=== PATIENT | male | born 1980 | race African-American/Black ===

== ENCOUNTER 2016-10-15 20:22 | Emergency (ER) | payer OTHER ==
[~2016-10-15] VITALS: Ht 185.4 cm; Wt 136.1 kg
[~2016-10-15 20:22] MED LIST: ALBUTEROL0.09 MG/A1 INH; IBUPROFEN600 M1 PO; METFORMIN HCL1000 M1 PO; MOTRIN800 MG PO; TRAMADOL HCL50 M1 PO; VENTOLIN HFA18 GM INH
--- NOTE | 2016-10-15 21:08 | ED UPPER/LOWER EXTREMITY COMPL ---
History of Present Illness General Chief Complaint: General Adult Stated Complaint: " LT LEG SWELLING, CONCERNED ABOUT BS LEVEL" Source: patient Exam Limitations: no limitations Vital Signs & Intake/Output Vital Signs & Intake/Output Vital Signs Date Time Temp Pulse Resp B/P Pulse O2 O2 Flow FiO2 Ox Delivery Rate 10/15 2241 72 16 120/68 99 Room Air 10/15 2130 Room Air 10/15 2026 98.4 83 22 141/87 97 Room Air ED Intake and Output 10/16 0000 10/15 1200 Intake Total 0 Output Total Balance 0 Intake, Oral 0 Patient 300 lb Weight Allergies Coded Allergies: NO KNOWN ALLERGIES (10/15/16) Triage Note: TRIAGE: PT TO ER C/C L LOWER LEG PAIN SINCE MONDAY. NO KNOWN INJURY. REPORTS THERE IS SWELLING AND REDNESS TO AREA AND IT IS WARM TO THE TOUCH. PT ALSO EXPRESSED CONCERN FOR BLOOD SUGAR, DIAGNOSED WITH DIABETES FEW MONTHS AGO. F/S AT [facility] DESK WAS 296. PRESCRIBED METFORMIN BID BUT STATES "I DON'T TAKE IT". STATES HE HAD A PROBLEM WITH INSURANCE SO "FIGURED WHY TAKE IT IF I CAN'T GET NO MORE". Triage Nurses Notes Reviewed? yes Onset: Abrupt Duration: day(s): (FEW), constant, continues in ED Timing: recent history Severity: moderate, severe Pain/Injury Location: Left: Leg. No Modifying Factors: none HPI: 35-year-old male comes into emergency room with left lower extremity pain and swelling has been going on for the past few days. Sharp throbbing. Patient has a history of type 2 diabetes recently diagnosed. Denies any fever chills. Patient reports that he was sick for a week prior to the leg swelling and was in bed. Denies any vomiting. Denies any other associated symptoms. (SILAS SEBASTIAN,PITER) Reconcile Medications Albuterol Sulfate (Ventolin Hfa) 18 GM HFA.AER.AD 2 PUF INH Q4-6 PRN PRN WHEEZING/SHORTNESS OF BREATH Amoxicillin 500 MG TABLET 2 TAB PO BID CELLULITIS Ibuprofen 600 MG TABLET 1 TAB PO TID HEADACHE Metformin HCl 1,000 MG TABLET 1 TAB PO BID diabetes Sulfamethoxazole/Trimethoprim (Bactrim Ds Tablet) 800 MG-160 MG TABLET 1 TAB PO BID CELLULITIS Tramadol HCl 50 MG TABLET 1 TAB PO TID PRN PAIN (MARILEE MILAN,AYANA) Past History Travel History Traveled to [place] past 21 day No Medical History Any Pertinent Medical History? 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 No (PITER KERR) Review of Systems Review of Systems Constitutional: Reports: no symptoms. EENTM: Reports: no symptoms. Respiratory: Reports: no symptoms. Cardiovascular: Reports: no symptoms. Gastrointestinal/Abdominal: Reports: no symptoms. Genitourinary: Reports: no symptoms. Musculoskeletal: Reports: see HPI. Skin: Reports: see HPI. Neurological/Psychological: Reports: no symptoms. Hematologic/Endocrine: Reports: no symptoms. Immunological: Reports: no symptoms. All Other Systems: Reviewed and Negative (PITER KERR) Physical Exam Physical Exam General Appearance: well developed/nourished, mild distress Head: atraumatic Eyes: Bilateral: normal appearance. Ears, Nose, Throat: normal ENT inspection, hearing grossly normal Neck: normal inspection Cardiovascular/Respiratory: no respiratory distress Back: normal inspection Leg Left: soft tissue tenderness, swelling, erythema, warmth, Foot Left: normal inspection, normal range of motion Neurologic/Tendon: normal sensation, normal motor functions, normal tendon functions, responds to pain, no evidence tendon injury, no pulse deficit Skin: intact, normal color, warm/dry Lymphatic: no anterior cervical massiel (PITER KERR) Progress Differential Diagnosis: cellulitis, contusion, dislocation, DVT, fracture, gout, sprain, tendon injury Plan of Care: Orders Procedure Date/time Status PARTIAL THROMBOPLASTIN TIME 10/15 2230 Complete PROTHROMBIN TIME 10/15 2230 Complete Add-on Test (ER Only) 10/15 2209 Active BLOOD CULTURE 10/15 2106 Active LACTIC ACID 10/15 2106 Complete C-REACTIVE PROTEIN 10/15 2106 Complete COMPREHENSIVE METABOLIC PANEL 10/15 2106 Complete CBC WITHOUT DIFFERENTIAL 10/15 2106 Complete Laboratory Tests 10/15/162230: PT 11.2, INR 1.07, APTT 32 10/15/162218: APTT Cancelled 10/15/162114: Anion Gap 11, Estimated GFR > 60, BUN/Creatinine Ratio 13.3, Glucose 375 H, Lactic Acid 1.1, Calcium 9.0, Total Bilirubin 0.4, AST 19, ALT 42, Alkaline Phosphatase 89, C-Reactive Prot, Quant 4.1 H, Total Protein 6.9, Albumin 3.6, Globulin 3.3, Albumin/Globulin Ratio 1.1, CBC w Diff NO MAN DIFF REQ, RBC 4.67 L, MCV 89.5, MCH 29.7, RDW 12.1, MPV 8.4, Gran % 61.9, Lymphocytes % 25.5, Monocytes % 5.5, Eosinophils % 5.5 H, Basophils % 1.6, Absolute Granulocytes 5.9, Absolute Lymphocytes 2.4, Absolute Monocytes 0.5, Absolute Eosinophils 0.5, Absolute Basophils 0.2, PUBS MCHC 33.2 Microbiology 10/15 2128 BLOOD: Blood Culture - RECD 10/15 2114 BLOOD: Blood Culture - RECD Comments: 10/15/2016 11:19:34 PM Patient was medicated with 1 time dose of Lovenox. Patient will return tomorrow morning for ultrasound of left lower extremity due to high suspicion of DVT. Could also be overlying cellulitis. If ultrasound is normal tomorrow patient will be continued on oral antibiotics that were sent to [facility] pharmacy [place] versions are. Patient understands and agrees with plan of care. Reevaluated multiple times. Nontoxic-appearing. She had decision-making. Case discussed with Dr. Dudley. (SILAS PA,AFTON) Departure Departure Disposition: HOME OR SELF CARE Condition: Stable Clinical Impression Primary Impression: Swelling of calf Secondary Impressions: Cellulitis Referrals: RIGOBERTO MILAN,[place] (PCP/Family) Additional Instructions: Please return tomorrow morning at 8 AM for a ultrasound of her left lower extremity to rule out DVT. Return if any other concerns worsening symptoms. At this time it is unclear as to whether there is an infection of the skin or a blood clot. Due to the fact that ultrasound is not here you will have to return tomorrow morning for ultrasound. Please go over all results of today's visit with your primary care doctor. Contact your primary care doctor to let them know you were here in the emergency room. There may be nonspecific findings which may not be related to your visit today here in the emergency room but may require further evaluation and chronic monitoring by your primary care doctor. If you had a laceration today the chance of foreign body always remains. You should follow-up with your primary care doctor for recheck in 3-5 days for a wound check. If you had an x-ray done there is a chance that a fracture could have been missed on initial read and you should follow-up with your primary care doctor for repeat x-rays if symptoms persist. If your blood pressure was elevated here in the emergency room please have rechecked by her primary care doctor within the next 48 hours by your primary care doctor. If you were prescribed a narcotic here in the emergency room or any type of controlled substances you're not allowed to drive while taking this medication or operate any type of heavy machinery. Narcotics can make you feel lightheaded dizziness nausea and can cause constipation. You may need to picker tender helper a stool softener. Thank you for choosing [facility] emergency room. Please return to the emergency room immediately if you have any other concerns worsening of symptoms. Departure Forms: Customer Survey General Discharge Information Prescriptions: Current Visit Scripts Amoxicillin 2 TAB PO BID #40 TAB Sulfamethoxazole/Trimethoprim (Bactrim Ds Tablet) 1 TAB PO BID #20 TAB (PITER KERR) PA/COOPERATIVE MANAGER Co-Sign Statement Statement: ED Attending supervision documentation- [] I saw and evaluated the patient. I have also reviewed all the pertinent lab results and diagnostic results. I agree with the findings and the plan of care as documented in the PA's/COOPERATIVE MANAGER's documentation. [X] I have reviewed the ED Record and agree with the PA's/COOPERATIVE MANAGER's documentation. [] Additions or exceptions (if any) to the PAs/COOPERATIVE MANAGER's note and plan are summarized below: [] (MARILEE MILAN,AYANA)
[2016-10-15 21:37] LABS: ABSOLUTE BASOPHIL COUNT 0.2 /CUMM (0.0-0.2); ABSOLUTE EOSINOPHIL COUNT 0.5 /CUMM (0.0-0.7); ABSOLUTE GRANULOCYTE CT 5.9 /CUMM (1.4-6.5); ABSOLUTE LYMPH COUNT 2.4 /CUMM (1.2-3.4); ABSOLUTE MONOCYTE COUNT 0.5 /CUMM (0.10-0.60); BASOPHIL % 1.6 % (0.0-2.0); EOSINOPHIL % 5.5 % (0-5); GRANULOCYTE % 61.9 % (42.2-75.2); HEMATOCRIT 41.8 % (42-52); MEAN CORPUSCULAR HGB 29.7 PG (27.0-31.0); MEAN CORPUSCULAR HGB CONC 33.2 G/DL (33.0-37.0); MEAN CORPUSCULAR VOLUME 89.5 FL (80.0-94.0); MEAN PLATELET VOLUME 8.4 FL (7.4-10.4); PLATELET COUNT 401 /CUMM (130-400); RBC DISTRIBUTION WIDTH 12.1 % (11.5-14.5); RED BLOOD CELL CT 4.67 /CUMM (4.70-6.10); WHITE BLOOD CELL COUNT 9.5 /CUMM (4.8-10.8)
[2016-10-15 22:41] VITALS: BP 120/68
[2016-10-15 22:49] LABS: PT 11.2 SEC (9.4-12.5); PTT 32 SEC (25-37)
[2016-10-15] MEDS ORDERED: BACTRIM DS TAB1 EACH PO (23:20)
[2016-10-15] MEDS ORDERED: AMOXICILLIN500 M3 PO (23:20)
[2016-10-16] MEDS ORDERED: METFORMIN HCL500 M3 PO (11:12)
== END 2016-10-15 22:41 ==
LOC: ERH 20:22
PROVIDERS: Physician Assistant Medical
DX: L03.116 Cellulitis of left lower limb (principal); M79.89 Other specified soft tissue disorders
CPT/HCPCS: 87040; 96372; J1650

== ENCOUNTER 2016-10-16 09:04 | Emergency (ER) | payer OTHER ==
[~2016-10-16] VITALS: Ht 162.6 cm; Wt 136.1 kg
[~2016-10-16 09:04] MED LIST changes: +AMOXICILLIN500 M3 PO; +BACTRIM DS TAB1 EACH PO
--- NOTE | 2016-10-16 10:15 | ED UPPER/LOWER EXTREMITY COMPL ---
History of Present Illness General Chief Complaint: Lower Extremity Problems Stated Complaint: LFT LEG US Source: patient, old records Exam Limitations: no limitations Vital Signs & Intake/Output Vital Signs & Intake/Output Vital Signs Date Time Temp Pulse Resp B/P Pulse O2 O2 Flow FiO2 Ox Delivery Rate 10/16 1035 97.8 83 20 126/85 98 10/16 0917 97.6 80 18 124/83 97 Room Air Allergies Coded Allergies: NO KNOWN ALLERGIES (10/15/16) Reconcile Medications Albuterol Sulfate (Ventolin Hfa) 18 GM HFA.AER.AD 2 PUF INH Q4-6 PRN PRN WHEEZING/SHORTNESS OF BREATH Amoxicillin 500 MG TABLET 2 TAB PO BID CELLULITIS Ibuprofen 600 MG TABLET 1 TAB PO TID HEADACHE Metformin HCl 1,000 MG TABLET 1 TAB PO BID diabetes Metformin HCl 500 MG TABLET 1 TAB PO BID dm Sulfamethoxazole/Trimethoprim (Bactrim Ds Tablet) 800 MG-160 MG TABLET 1 TAB PO BID CELLULITIS Tramadol HCl 50 MG TABLET 1 TAB PO TID PRN PAIN Triage Note: HERE FOR RECHECK OF LEFT LOWER LEG AND US. SEEN HERE LAST PM FOR LEFT LOWER LEG PAIN, SWELLING AND REDNESS. IS ON ABX AND (PCN) AND LOVENOX. Triage Nurses Notes Reviewed? yes HPI: 35-year-old male here with left lower leg swelling, was seen here yesterday and was told to return for ultrasound. He was given a dose of Lovenox last night and also prescribed antibiotics to likelihood of cellulitis however he did not start taking the antibiotics yet as he has not picked up the prescription. He denies any chest pain shortness of breath no fever no cough or hemoptysis. His blood sugar was noted to be 375 yesterday reviewed his records. He does not have a history of diabetes, he was told he was"prediabetic". He does have family history of diabetes. No family history of blood clots. (ISAI LEVIN) Past History Travel History Traveled to [place] past 21 day No Medical History Any Pertinent Medical History? 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 No (ISAI LEVIN) Review of Systems Review of Systems Constitutional: Reports: see HPI. EENTM: Reports: no symptoms. Respiratory: Reports: no symptoms. Cardiovascular: Reports: no symptoms. Gastrointestinal/Abdominal: Reports: no symptoms. Genitourinary: Reports: no symptoms. Musculoskeletal: Reports: see HPI. Skin: Reports: see HPI. Neurological/Psychological: Reports: no symptoms. Hematologic/Endocrine: Reports: polydipsia. Immunological: Reports: no symptoms. All Other Systems: Reviewed and Negative (ISAI LEVIN) Physical Exam Physical Exam General Appearance: well developed/nourished Comments: Well-developed well-nourished no apparent distress. HEENT: Atraumatic, extraocular motion intact Neck: Supple, no lymphadenopathy Back: Nontender Respiratory: No respiratory distress clear to auscultation bilateral. Heart: Regular rate and rhythm no murmur Extremities: Left lower extremity with 3+ edema circumferentially around the lower leg and calf with tenderness noted throughout. Moderate warmth and erythema. Neurovascularly intact, full range of motion Neuro: Alert and oriented x3 Psych: Mood affect normal, normal memory normal judgment. Skin: Warm and dry, no rash on exposed skin (ISAI LEVIN) Progress Differential Diagnosis: arterial insufficiency, cellulitis, CHF, compartment syndrome, contusion, dislocation, DVT, fracture, gout, septic arthritis, sprain, tendon injury Plan of Care: Orders Procedure Date/time Status FingerStick- Glucose 10/16 1015 Active Diagnostic Imaging: Viewed by Me: Ultrasound. Discussed w/RAD: Ultrasound. Radiology Impression: PATIENT: JAYE GRAMAJO PRESENT AGE: 35 PATIENT ACCOUNT NO: [id number] : 81 LOCATION: [facility] ORDERING PHYSICIAN: ISAI SEBASTIAN SERVICE DATE: 10/16/16 EXAM TYPE: US - US -DUPLEX VENOUS EXTREM UNI EXAMINATION: US DUPLEX EXTREMITY VEINS, LEFT. CLINICAL INFORMATION: Swelling and pain. COMPARISON: None. TECHNIQUE: Routine grayscale, color and Doppler imaging of left lower leg was performed. FINDINGS: There is normal compression, flow and augmentation seen in left common femoral, greater saphenous, superficial femoral, popliteal and left calf veins. There is no Curiel 's cyst. There are abnormally enlarged left groin lymph nodes. The largest lymph node superficial to proximal superficial femoral vein measures 2.6 x 1.5 x 3.2 cm. Enlarged left lymph node superior to common femoral vein measures 1.7 x 0.8 x 2.0 cm. IMPRESSION: No evidence of left lower leg DVT. Abnormal enlarged left inguinal lymph node. Recommend further evaluation. DICTATED BY: CHIKIS GRANGER MD DATE/TIME DICTATED:10/16/161049 ELECTRIC ARC FURNACE OPERATOR:DIOMEDES DATE/TIME TRANSCRIBED:10/16/161049 Comments: FS 304 Ultrasound is unremarkable. Patient has a cellulitis, he has lymphadenopathy. On the ultrasound as well. Recommend rest, elevation, warm compresses, take the antibiotics for that were prescribed to him yesterday. He notes that he was previously on metformin however he lost his insurance and has not taken the medication several months. He is given a prescription for metformin 500 mg twice a day which was his previous dose according to the patient. He requires close follow-up with primary care doctor or return here with worsening symptoms. He understands and agrees with plan. (ISAI LEVIN) Departure Departure Disposition: HOME OR SELF CARE Condition: Stable Clinical Impression Primary Impression: Cellulitis of lower leg Secondary Impressions: Diabetes Qualifiers: Diabetes mellitus type: type 2 Diabetes mellitus complication status: with skin complications Diabetes mellitus complication detail: with other skin complication Diabetes mellitus fdc insulin use: without tank terminal gauger use Qualified Code: E11.628 - Type 2 diabetes mellitus with other skin complications Referrals: ZUNILDA MILAN,ANDREY FRANKLIN MD,[place] (PCP/Family) Additional Instructions: Take antibiotics as directed, start the metformin for your diabetes and follow- up with your primary care doctor within the next 1-2 weeks. Elevate the leg as much as possible and apply warm compresses. Avoid excessive standing and walking. This infection may worsening, causing redness to spread up the leg, fever, flulike illness, nausea or vomiting. Return to the ER with any concerns of this. Departure Forms: Customer Survey General Discharge Information Prescriptions: Current Visit Scripts Metformin HCl 1 TAB PO BID #60 TAB (ISAI LEVIN) PA/INSURANCE POLICY CLERK Co-Sign Statement Statement: ED Attending supervision documentation- [] I saw and evaluated the patient. I have also reviewed all the pertinent lab results and diagnostic results. I agree with the findings and the plan of care as documented in the PA's/INSURANCE POLICY CLERK's documentation. x I have reviewed the ED Record and agree with the PA's/INSURANCE POLICY CLERK's documentation. [] Additions or exceptions (if any) to the PAs/INSURANCE POLICY CLERK's note and plan are summarized below: [] (JOAQUÍN MILAN,SOPHIA)
[2016-10-16 10:35] VITALS: BP 126/85
--- NOTE | 2016-10-16 10:56 | ULTRASOUND REPORT ---
EXAMINATION: US DUPLEX EXTREMITY VEINS, LEFT. CLINICAL INFORMATION: Swelling and pain. COMPARISON: None. TECHNIQUE: Routine grayscale, color and Doppler imaging of left lower leg was performed. FINDINGS: There is normal compression, flow and augmentation seen in left common femoral, greater saphenous, superficial femoral, popliteal and left calf veins. There is no Curiel's cyst. There are abnormally enlarged left groin lymph nodes. The largest lymph node superficial to proximal superficial femoral vein measures 2.6 x 1.5 x 3.2 cm. Enlarged left lymph node superior to common femoral vein measures 1.7 x 0.8 x 2.0 cm. IMPRESSION: No evidence of left lower leg DVT. Abnormal enlarged left inguinal lymph node. Recommend further evaluation.
[2016-10-16] MEDS ORDERED: METFORMIN HCL500 M3 PO (11:12)
== END 2016-10-16 11:18 ==
LOC: ERH 09:04
DX: L03.116 Cellulitis of left lower limb (principal)

== ENCOUNTER 2017-12-13 18:06 | Observation (INO) | payer OTHER ==
[~2017-12-13] VITALS: Ht 185.4 cm; Wt 131.5 kg
[~2017-12-13 18:06] MED LIST changes: +METFORMIN HCL500 M3 PO
[2017-12-13 19:35] LABS: ABSOLUTE BASOPHIL COUNT 0 /CUMM (0.0-0.2); ABSOLUTE EOSINOPHIL COUNT 0 /CUMM (0.0-0.7); ABSOLUTE GRANULOCYTE CT 21.4 /CUMM (1.4-6.5); ABSOLUTE LYMPH COUNT 1.3 /CUMM (1.2-3.4); ABSOLUTE MONOCYTE COUNT 0.8 /CUMM (0.10-0.60); BASOPHIL % 0.1 % (0.0-2.0); EOSINOPHIL % 0 % (0-5); GRANULOCYTE % 90.8 % (42.2-75.2); HEMATOCRIT 45.1 % (42-52); MEAN CORPUSCULAR HGB 29.9 PG (27.0-31.0); MEAN CORPUSCULAR HGB CONC 33.8 G/DL (33.0-37.0); MEAN CORPUSCULAR VOLUME 88.3 FL (80.0-94.0); MEAN PLATELET VOLUME 8.8 FL (7.4-10.4); PLATELET COUNT 271 /CUMM (130-400); RBC DISTRIBUTION WIDTH 12.1 % (11.5-14.5); RED BLOOD CELL CT 5.11 /CUMM (4.70-6.10); WHITE BLOOD CELL COUNT 23.6 /CUMM (4.8-10.8)
--- NOTE | 2017-12-13 20:32 | RADIOLOGY REPORT ---
EXAMINATION: XR CHEST CLINICAL INFORMATION: Cough and fever COMPARISON: None TECHNIQUE: 2 views of the chest were obtained. FINDINGS: No significant abnormality is noted involving the heart, lungs, mediastinum, bony thorax or soft tissues. IMPRESSION: Unremarkable examination.
--- NOTE | 2017-12-13 20:37 | ED GENERAL ADULT ---
History of Present Illness General Chief Complaint: General Adult Stated Complaint: ELAVATED BLOOD SUGAR Source: patient, family Exam Limitations: no limitations Vital Signs & Intake/Output Vital Signs & Intake/Output Vital Signs Date Time Temp Pulse Resp B/P B/P Pulse O2 O2 Flow FiO2 Mean Ox Delivery Rate 12/14 0134 96.4 80 18 129/62 95 Room Air 12/138 98.7 12/14 2223 98.7 68 108/57 95 Room Air 12/13 2049 100.4 12/13 1948 98 12/13 1914 100.4 12/13 1839 102.8 12/13 182 102.8 109 18 112/70 96 Room Air ED Intake and Output 12/14 0000 12/13 1200 Intake Total Output Total 500 Balance -500 Output, Urine 500 Patient 290 lb Weight Weight Standing Scale Measurement Method Allergies Coded Allergies: NO KNOWN ALLERGIES (10/15/16) Reconcile Medications Albuterol Sulfate (Ventolin Hfa) 18 GM HFA.AER.AD 2 PUF INH Q4-6 PRN PRN WHEEZING/SHORTNESS OF BREATH Amoxicillin 500 MG TABLET 2 TAB PO BID CELLULITIS Ibuprofen 600 MG TABLET 1 TAB PO TID HEADACHE Metformin HCl 1,000 MG TABLET 1 TAB PO BID diabetes Metformin HCl 500 MG TABLET 1 TAB PO BID dm Sulfamethoxazole/Trimethoprim (Bactrim Ds Tablet) 800 MG-160 MG TABLET 1 TAB PO BID CELLULITIS Tramadol HCl 50 MG TABLET 1 TAB PO TID PRN PAIN Triage Note: RECEIVED 37 YO MALE C/O ELEVATED BLOOD SUGAR WITH HEADACHE, WEAKNESS AND CONSTANTLY GOING TO URINATE. FINGER STICK IN TRIAGE 193. PT HAS NOT TAKEN METFORMIN IN A FEW DAYS. PT HAS NOT EATEN TODAY, ONLY DRANK WATER Triage Nurses Notes Reviewed? yes Onset: Abrupt Duration: day(s): (3-4), constant, continues in ED, getting worse Timing: single episode today Injury Environment: home Severity: moderate, severe Severity Numbers: 7 No Modifying Factors: none HPI: 37-year-old male past medical history of nyx-plygddg-enlbxywlr diabetes mellitus for evaluation of headache, fevers, sweats, chills, weakness and urinary frequency. He reports symptoms started 3 or 4 days ago and getting worse. He reports diffuse body aches and decreased appetite. No nausea vomiting or diarrhea. No dysuria or penile discharge or abdominal pain. No chest pain shortness of breath. He does note that he has had a productive cough and some wheezing. he does smoke a lot of marijuana. No sick contacts recent travel or recent surgery. He also reports his blood sugar has been elevated he has not taken his metformin in a few days due to decreased appetite. (Gal Torre) Past History Travel History Traveled to [place] past 21 day No Medical History Any Pertinent Medical History? see below for history Neurological: NONE EENT: NONE Cardiovascular: NONE Respiratory: asthma Gastrointestinal: NONE Hepatic: NONE Renal: NONE Musculoskeletal: NONE Psychiatric: NONE Endocrine: diabetes Blood Disorders: NONE Cancer(s): NONE HIDE SELECTOR/Reproductive: NONE Surgical History Surgical History: non-contributory Psychosocial History What is your primary language Kiswahili Tobacco Use: Current Not Daily Family History Hx Contributory? No (Gal Torre) Review of Systems Review of Systems Constitutional: Reports: chills, diaphoresis, fever, malaise, weakness. EENTM: Reports: no symptoms. Respiratory: Reports: see HPI, cough, wheezing. Cardiovascular: Reports: no symptoms. GI: Reports: no symptoms. Genitourinary: Reports: see HPI, frequency. Musculoskeletal: Reports: joint pain, muscle pain, muscle stiffness. Skin: Reports: no symptoms. Neurological/Psychological: Reports: no symptoms. Hematologic/Endocrine: Reports: no symptoms. Immunologic/Allergic: Reports: no symptoms. All Other Systems: Reviewed and Negative (Gal Torre) Physical Exam Physical Exam General Appearance: well developed/nourished, no apparent distress, alert, awake , obese Head: atraumatic, normal appearance Eyes: Bilateral: normal appearance, PERRL, EOMI. Ears, Nose, Throat: normal pharynx, normal ENT inspection, hearing grossly normal Neck: normal inspection, supple, full range of motion Respiratory: chest non-tender, no respiratory distress, rhonchi, wheezing Cardiovascular: regular rate/rhythm, normal peripheral pulses Peripheral Pulses: 2+ radial (R), 2+ radial (L) Gastrointestinal: soft, non-tender Back: normal inspection, normal range of motion, no vertebral tenderness Extremities: normal inspection, normal range of motion, no edema Neurologic/Psych: no motor/sensory deficits, awake, alert, oriented x 3, normal gait Skin: intact, normal color, diaphoresis Lymphatic: no anterior cervical massiel Core Measures ACS in differential dx? No CVA/TIA Diagnosis: No Sepsis Present: No Sepsis Focused Exam Completed? No (Cachorro SEBASTIAN,Gal) Progress Differential Diagnoses I considered the following diagnoses in my evaluation of the patient: [Sepsis, prostatitis, pyelonephritis, kidney stone, acute bronchitis, pneumonia, influenza, DKA, HHS] Plan of Care: Orders Procedure Date/time Status Consistent Carbohydrate 2 12/14 B Active OXYGEN SETUP (GEN) 12/14 156 Active Saline Lock 12/[address] in observation 12/14 156 Active Vital Signs 12/14 156 Active Activity/Ambulation 12/14 156 Active Code Status 12/14 156 Active Add-on Test (ER Only) 12/14 2135 Active BLOOD CULTURE 12/14 2047 Active Add-on Test (ER Only) 12/13 2008 Active CULTURE,URINE 12/14 1923 Active CHLAMYDIA-GC DNA PROBE 12/14 1923 Active LACTIC ACID 12/13 1904 Complete RAPID VIRAL INFLUENZA A 12/13 1820 Complete URINALYSIS 12/13 1820 Complete COMPREHENSIVE METABOLIC PANEL 12/13 1820 Complete CBC WITHOUT DIFFERENTIAL 12/13 1820 Complete FingerStick- Glucose 12/13 1817 Active Laboratory Tests 12/13/171923: Urinalysis LIGHT H, Urine Color YEL, Urine Clarity CLEAR, Urine pH 6.0, Ur Specific [place] >= 1.030, Urine Protein 100 H, Urine Ketones TRACE H, Urine Nitrite NEG, Urine Bilirubin NEG, Urine Urobilinogen 1.0, Ur Leukocyte Esterase TRACE H, Ur Microscopic SEDIMENT EXAMINED, Urine RBC 1-3, Urine WBC 15-25 H, Ur Epithelial Cells RARE, Urine Mucus FEW, Urine Hemoglobin TRACE-INTACT H, Urine Glucose 100 H 12/13/171904: Anion Gap 12, Estimated GFR > 60, BUN/Creatinine Ratio 11.0, Glucose 213 H, Lactic Acid 0.9, Calcium 9.0, Total Bilirubin 0.8, AST 13 L, ALT 31, Alkaline Phosphatase 69, Total Protein 6.9, Albumin 3.7, Globulin 3.2, Albumin/Globulin Ratio 1.2, CBC w Diff MAN DIFF ORDERED, RBC 5.11, MCV 88.3, MCH 29.9, MCHC 33.8, RDW 12.1, MPV 8.8, Gran % 90.8 H, Lymphocytes % 5.6 L, Monocytes % 3.5, Eosinophils % 0, Basophils % 0.1, Absolute Granulocytes 21.4 H, Segmented Neutrophils 84 H, Band Neutrophils 3, Absolute Lymphocytes 1.3, Lymphocytes 9 L, Monocytes 4, Absolute Monocytes 0.8 H, Absolute Eosinophils 0, Absolute Basophils 0, Platelet Estimate ADEQUATE, Normocytic RBCs VERIFIED, Stomatocytes FEW Microbiology 12/14 2139 BLOOD: Blood Culture - RECD 12/13 2134 BLOOD: Blood Culture - RECD 12/14 1923 URINE ROUT: GC DNA Probe - RECD 12/14 1923 URINE ROUT: Chlamydia DNA Probe (DOUG) - RECD 12/14 1923 URINE ROUT: Urine Culture - RECD 12/13 1828 NASOPHARYN: Influenza Virus A & B Rapid Smear - COMP Patient seen and evaluated. On initial presentation he is febrile to 102.7. He has diffuse wheezing and rhonchi auscultated bilaterally. He was medicated with ibuprofen and a DuoNeb. Basic blood work urinalysis influenza testing chest x- ray ordered. Blood work is back and shows significant leukocytosis of 24,000 with a left shift. Chest x-ray is clear patient is feeling better after DuoNeb. Urine is showing signs of infection culture ordered. Additionally gonorrhea and chlamydia testing ordered. Due to leukocytosis a CT scan was obtained for further evaluation to rule out prostatitis. CT scan does not show any evidence of prostatitis abscess or pyelonephritis. There is some pelvic lymphadenopathy which is nonspecific and radiologist feels could be related to infectious process versus malignancy. Due to significant leukocytosis history of diabetes fever patient will be admitted for observation to trend white count, follow-up cultures, IV antibiotics, urology, monitoring vital signs, antipyretics. Case discussed with dR Carson and he agrees. Diagnostic Imaging: Viewed by Me: CT Scan. Discussed w/RAD: CT Scan. Radiology Impression: PATIENT: JAYE GRAMAJO PRESENT AGE: 37 PATIENT ACCOUNT NO: [id number] : 81 LOCATION: [facility] ORDERING PHYSICIAN: Gal SEBASTIAN SERVICE DATE: 12/13/17 EXAM TYPE: CAT - CT ABD & PELVIS W IV CONTRAST EXAMINATION: CT ABDOMEN AND PELVIS WITH CONTRAST CLINICAL INFORMATION: Urinary frequency, fever COMPARISON: None TECHNIQUE: Multidetector volumetric imaging was performed of the abdomen and pelvis following IV administration of 100 mL of Omnipaque 300 intravenous contrast. Sagittal and coronal reformatted images were obtained on the technologist's workstation. DLP: 919 mGy-cm FINDINGS: LUNG BASES: The visualized lung bases are unremarkable. LIVER, GALLBLADDER, AND BILIARY TREE: The liver is normal in size, shape, and attenuation. No focal hepatic lesion or biliary ductal dilatation is present. The gallbladder is unremarkable with no evidence of radiopaque gallstones, gallbladder wall thickening, or obvious pericholecystic inflammatory changes. PANCREAS: Unremarkable. SPLEEN: Unremarkable. ADRENAL GLANDS: Unremarkable. KIDNEYS AND URETERS: The kidneys are normal in size, shape, and attenuation. No hydronephrosis, hydroureter, or calculi seen. No perinephric stranding. BLADDER: Unremarkable. GASTROINTESTINAL TRACT: The small and large bowel are unremarkable. The appendix is unremarkable. ABDOMINAL WALL: No significant hernia is appreciated. LYMPH NODES: Reactive appearing lymph nodes partially imaged left inguinal region. Mildly prominent pelvic lymph nodes largest left external iliac lymph node chain measuring up to 14 mm short axis. No retroperitoneal pathologic lymph nodes. VASCULAR: Unremarkable. PELVIC VISCERA: Unremarkable. Prostate and seminal vesicles appear within normal limits. OSSEOUS STRUCTURES: Unremarkable. IMPRESSION: No CT evidence for any prostatitis or seminal vesiculitis. No abscess. Bladder decompressed. No gross abnormality. Mildly abnormal lymph nodes within the pelvis which is nonspecific. This may be related to infection but pathologic lymph nodes second due to carcinoma or lymphoma not excluded. Short interval follow-up recommended. DICTATED BY: Ander Barroso MD DATE/TIME DICTATED:12/13/172119 CHIP UNLOADER:DIOMEDES DATE/TIME TRANSCRIBED:12/13/172119 CONFIDENTIAL, DO NOT COPY WITHOUT APPROPRIATE AUTHORIZATION. <Electronically signed in Other Vendor System> SIGNED BY: Ander Barroso MD 12/13/172129 CXR Impression: PATIENT: JAYE GRAMAJO PRESENT AGE: 37 PATIENT ACCOUNT NO: [id number] : 81 LOCATION: [facility] ORDERING PHYSICIAN: Gal SEBASTIAN SERVICE DATE: 12/13/17 EXAM TYPE: RAD - XRY-CHEST XRAY, TWO VIEWS EXAMINATION: XR CHEST CLINICAL INFORMATION: Cough and fever COMPARISON : None TECHNIQUE: 2 views of the chest were obtained. FINDINGS: No significant abnormality is noted involving the heart, lungs, mediastinum, bony thorax or soft tissues. IMPRESSION: Unremarkable examination. DICTATED BY: Ander Barroso MD DATE/TIME DICTATED:12/13/172026 CHIP UNLOADER:DIOMEDES DATE/TIME TRANSCRIBED:12/13/172026 CONFIDENTIAL, DO NOT COPY WITHOUT APPROPRIATE AUTHORIZATION. <Electronically signed in Other Vendor System> SIGNED BY: Ander Barroso MD 12/13/172031 Initial ED EKG: none (Gal Torre) Departure Departure Disposition: STILL A PATIENT Condition: Stable Clinical Impression Primary Impression: Fever of unknown origin Secondary Impressions: Leukocytosis Qualifiers: Leukocytosis type: bandemia Qualified Code: D72.825 - Bandemia Referrals: Unknown (PCP/Family) Departure Forms: Customer Survey General Discharge Information Observation Note Spoke With: Anisa Ralph MD Physician Advisor Notified: LEXA GUARDADO DO Place Patient In: Non-ED OBS Care Area Rationale for Observation: My rational for observation is as follows [IV antibiotics, IV fluids, serial labs, follow-up cultures, antipyretics, urology]. (Gal Torre) PA/DISABILITY BENEFITS SPECIALIST Co-Sign Statement Statement: ED Attending supervision documentation- x I saw and evaluated the patient. I have also reviewed all the pertinent lab results and diagnostic results. I agree with the findings and the plan of care as documented in the PA's/DISABILITY BENEFITS SPECIALIST's documentation. Fever, weakness, hyperglycemia, leukocytosis, cellulitis [] I have reviewed the ED Record and agree with the PA's/DISABILITY BENEFITS SPECIALIST's documentation. [] Additions or exceptions (if any) to the PAs/DISABILITY BENEFITS SPECIALIST's note and plan are summarized below: [] (Atiya MILAN,Tj) Critical Care Note Critical Care Note Critical Care Time: non-applicable (Gal Torre)
--- NOTE | 2017-12-13 21:30 | CT SCAN REPORT ---
EXAMINATION: CT ABDOMEN AND PELVIS WITH CONTRAST CLINICAL INFORMATION: Urinary frequency, fever COMPARISON: None TECHNIQUE: Multidetector volumetric imaging was performed of the abdomen and pelvis following IV administration of 100 mL of Omnipaque 300 intravenous contrast. Sagittal and coronal reformatted images were obtained on the technologist's workstation. DLP: 919 mGy-cm FINDINGS: LUNG BASES: The visualized lung bases are unremarkable. LIVER, GALLBLADDER, AND BILIARY TREE: The liver is normal in size, shape, and attenuation. No focal hepatic lesion or biliary ductal dilatation is present. The gallbladder is unremarkable with no evidence of radiopaque gallstones, gallbladder wall thickening, or obvious pericholecystic inflammatory changes. PANCREAS: Unremarkable. SPLEEN: Unremarkable. ADRENAL GLANDS: Unremarkable. KIDNEYS AND URETERS: The kidneys are normal in size, shape, and attenuation. No hydronephrosis, hydroureter, or calculi seen. No perinephric stranding. BLADDER: Unremarkable. GASTROINTESTINAL TRACT: The small and large bowel are unremarkable. The appendix is unremarkable. ABDOMINAL WALL: No significant hernia is appreciated. LYMPH NODES: Reactive appearing lymph nodes partially imaged left inguinal region. Mildly prominent pelvic lymph nodes largest left external iliac lymph node chain measuring up to 14 mm short axis. No retroperitoneal pathologic lymph nodes. VASCULAR: Unremarkable. PELVIC VISCERA: Unremarkable. Prostate and seminal vesicles appear within normal limits. OSSEOUS STRUCTURES: Unremarkable. IMPRESSION: No CT evidence for any prostatitis or seminal vesiculitis. No abscess. Bladder decompressed. No gross abnormality. Mildly abnormal lymph nodes within the pelvis which is nonspecific. This may be related to infection but pathologic lymph nodes second due to carcinoma or lymphoma not excluded. Short interval follow-up recommended.
--- NOTE | 2017-12-14 01:35 | History & Physical ---
Ramon Boyd MD 12/14/17 0134: General Information and HPI MD Statement: I have seen and personally examined JAYE GRAMAJO and documented this H&P. The patient is a 37 year old M who presented with a patient stated chief complaint of []. History of Present Illness: Patient is a 37-year-old -Hungarian male with a past medical history significant for asthma, nke-itgfltb-ihptrinao diabetes, with a history of left leg cellulitis last year, who presents to the [facility] ED complaining of fevers, polyuria, malaise. Patient states that for the past 2 days he has had fever, chills, poor appetite, polyuria and left leg pain. He took Tamiflu at home and it did not improve his symptoms, he has had polyuria with urgency and dark urine today, no dysuria. He did not take his temperature at home but reported subjective fevers and chills. He has one sick contact, his daughter has had a cough recently. He has also had a nonproductive cough. Allergies/Medications Allergies: Coded Allergies: NO KNOWN ALLERGIES (10/15/16) Home Med list Albuterol Sulfate (Ventolin Hfa) 18 GM HFA.AER.AD 2 PUF INH Q4-6 PRN PRN WHEEZING/SHORTNESS OF BREATH Ibuprofen 600 MG TABLET 1 TAB PO TID HEADACHE Metformin HCl 1,000 MG TABLET 1 TAB PO BID diabetes Metformin HCl 500 MG TABLET 1 TAB PO BID dm Tramadol HCl 50 MG TABLET 1 TAB PO TID PRN PAIN Compliance With Home Meds: POOR Observation Initial Note - I have personally examined JAYE GRAMAJO on 12/14/17 at 0134. 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 Home Who Do You Live With? child, girlfriend Services at Home: None Primary Language: Kyrgyz Smoking Status: Light Tobacco Smoker (3 cigarrettes/day for 15 yrs) ETOH Use: denies use Illicit Drug Use: marijuana Functional Ability ADLs Independent: dressing, eating, toileting, bathing. Ambulation: independent IADLs Independent: shopping, housework, finances, food prep, telephone, transportation , medication admin. Review of Systems Review of Systems Constitutional: Reports: chills, fever, malaise. EENTM: Reports: no symptoms. Cardiovascular: Reports: no symptoms. Respiratory: Reports: cough. Denies: short of breath, sputum production. GI: Reports: no symptoms. Genitourinary: Reports: frequency, urgency. Denies: discharge, dysuria, hematuria, hesitation, pain. Musculoskeletal: Reports: muscle pain. Skin: Reports: no symptoms. Neurological/Psychological: Reports: no symptoms. Exam & Diagnostic Data Last 24 Hrs of Vital Signs/I&O Vital Signs Date Time Temp Pulse Resp B/P B/P Pulse O2 O2 Flow FiO2 Mean Ox Delivery Rate 12/14 2227 98.7 12/13 222 98.7 68 108/57 95 Room Air 12/13 2049 100.4 12/13 1948 98 12/13 1914 100.4 12/13 1839 102.8 12/13 1823 102.8 109 18 112/70 96 Room Air Intake & Output 12/14 0800 12/14 0000 12/13 1600 Intake Total Output Total 500 Balance -500 Output, Urine 500 Patient 290 lb Weight Weight Standing Scale Measurement Method Physical Exam General Appearance Alert, Oriented X3, Cooperative, No Acute Distress Skin Temp/Moisture Exam: Warm/Dry Sepsis Skin Exam (color): Normal for Ethnicity HEENT Atraumatic, PERRLA, EOMI, Mucous Membr. moist/pink Neck Supple, No JVD, No thryomegaly Lymphatic Cervical nl Cardiovascular Regular Rate, Normal S1, Normal S2, No Murmurs Lungs Clear to Auscultation, Normal Air Movement Abdomen Normal Bowel Sounds, Soft, No Tenderness Neurological Normal Speech, Strength at 5/5 X4 Ext, Normal Tone, Sensation Intact Extremities L distal medial leg with erythema, swelling, warmth and tenderness to palpation Vascular Normal Pulses, Pulses Symmetrical Sepsis Peripheral Pulse Location: Radial Sepsis Peripheral Pulse Exam: Normal Sepsis Cap Refill Exam: <2 Sec Last 24 Hrs of Labs/Jose: Laboratory Tests 12/13/171923: Urinalysis LIGHT H, Urine Color YEL, Urine Clarity CLEAR, Urine pH 6.0, Ur Specific [place] >= 1.030, Urine Protein 100 H, Urine Ketones TRACE H, Urine Nitrite NEG, Urine Bilirubin NEG, Urine Urobilinogen 1.0, Ur Leukocyte Esterase TRACE H, Ur Microscopic SEDIMENT EXAMINED, Urine RBC 1-3, Urine WBC 15-25 H, Ur Epithelial Cells RARE, Urine Mucus FEW, Urine Hemoglobin TRACE-INTACT H, Urine Glucose 100 H 12/13/171904: Anion Gap 12, Estimated GFR > 60, BUN/Creatinine Ratio 11.0, Glucose 213 H, Lactic Acid 0.9, Calcium 9.0, Total Bilirubin 0.8, AST 13 L, ALT 31, Alkaline Phosphatase 69, Total Protein 6.9, Albumin 3.7, Globulin 3.2, Albumin/Globulin Ratio 1.2, CBC w Diff MAN DIFF ORDERED, RBC 5.11, MCV 88.3, MCH 29.9, MCHC 33.8, RDW 12.1, MPV 8.8, Gran % 90.8 H, Lymphocytes % 5.6 L, Monocytes % 3.5, Eosinophils % 0, Basophils % 0.1, Absolute Granulocytes 21.4 H, Segmented Neutrophils 84 H, Band Neutrophils 3, Absolute Lymphocytes 1.3, Lymphocytes 9 L, Monocytes 4, Absolute Monocytes 0.8 H, Absolute Eosinophils 0, Absolute Basophils 0, Platelet Estimate ADEQUATE, Normocytic RBCs VERIFIED, Stomatocytes FEW Microbiology 12/14 2139 BLOOD: Blood Culture - RECD 12/13 2134 BLOOD: Blood Culture - RECD 12/14 1923 URINE ROUT: GC DNA Probe - RECD 12/14 1923 URINE ROUT: Chlamydia DNA Probe (JOSE) - RECD 12/14 1923 URINE ROUT: Urine Culture - RECD 12/13 1828 NASOPHARYN: Influenza Virus A & B Rapid Smear - COMP Diagnostic Data CXR Results FINDINGS: No significant abnormality is noted involving the heart, lungs, mediastinum, bony thorax or soft tissues. IMPRESSION: Unremarkable examination. Other Results CT Abd/pelvis with IV contrast LUNG BASES: The visualized lung bases are unremarkable. LIVER, GALLBLADDER, AND BILIARY TREE: The liver is normal in size, shape, and attenuation. No focal hepatic lesion or biliary ductal dilatation is present. The gallbladder is unremarkable with no evidence of radiopaque gallstones, gallbladder wall thickening, or obvious pericholecystic inflammatory changes. PANCREAS: Unremarkable. SPLEEN: Unremarkable. ADRENAL GLANDS: Unremarkable. KIDNEYS AND URETERS: The kidneys are normal in size, shape, and attenuation. No hydronephrosis, hydroureter, or calculi seen. No perinephric stranding. BLADDER: Unremarkable. GASTROINTESTINAL TRACT: The small and large bowel are unremarkable. The appendix is unremarkable. ABDOMINAL WALL: No significant hernia is appreciated. LYMPH NODES: Reactive appearing lymph nodes partially imaged left inguinal region. Mildly prominent pelvic lymph nodes largest left external iliac lymph node chain measuring up to 14 mm short axis. No retroperitoneal pathologic lymph nodes. VASCULAR: Unremarkable. PELVIC VISCERA: Unremarkable. Prostate and seminal vesicles appear within normal limits. OSSEOUS STRUCTURES: Unremarkable. IMPRESSION: No CT evidence for any prostatitis or seminal vesiculitis. No abscess. Bladder decompressed. No gross abnormality. Mildly abnormal lymph nodes within the pelvis which is nonspecific. This may be related to infection but pathologic lymph nodes second due to carcinoma or lymphoma not excluded. Short interval follow-up recommended. Assessment/Plan Assessment: Patient is a 37-year-old -Hungarian male with a past medical history significant for asthma, hyr-ounvewx-avtavdema diabetes, with a history of left leg cellulitis last year, who presents to the [facility] ED complaining of fevers, polyuria, malaise. He has erythema, swelling, warmth his distal left lower extremity. He also has elevated blood sugars and polyuria in the setting of poor compliance with metformin. Patient meets 3 SIRS criteria with fever, tachycardia, leukocytosis on presentation with source of infection being cellulitis. Erythema and area of swelling was marked with a marker, smaller [place] represents area of significant swelling, larger outline represents overall area of erythema Vital signs on presentation: T1 102.8, pulse 109, RR 18, BP 112/70, pulse ox 96% on room air Labs on presentation significant for leukocytosis, bandemia, mild hyponatremia, hyperglycemia, UA with proteinuria, ketones, bili, elevated WBC, hemoglobin and glucose Problem list #Left lower extremity cellulitis #Uncontrolled diabetes mellitus #Incidental finding of abnormal lymph nodes on CT abdomen/pelvis Plan -Place in observation on general medicine -IV cefazolin -Adequate pain control - ultrasound of LLE to assess for DVT and abscess formation -Continue home asthma medication -Hold metformin, patient received IV contrast, begin NovoLog sliding scale - may need follow-up CT to monitor changes seen to lymph nodes Diet: Diabetic diet DVT prophylaxis: Lovenox, Alps on right leg CODE STATUS: Full code As Ranked By This Provider Problem List: 1. Cellulitis of lower leg 2. Sepsis 3. Diabetes Core Measures/Misc (06/04) Acute Coronary Syndrome ACS Diagnosis: No Congestive Heart Failure Congestive Heart Failure Diagnosis No Cerebrovascular Accident CVA/TIA Diagnosis: No VTE (View Protocol) VTE Risk Factors Obesity No Mechanical VTE Prophylaxis d/t N/A MechProphylax Ordered No VTE Pharm Prophylaxis d/t NA PharmProphylax ordered Sepsis (View protocol) Sepsis Present: Yes LaurenMoses 12/14/17 0252: Resident Review Statement Resident Statement: examined this patient, discussed with internet project manager, agreed with internet project manager, discussed with family Other Findings: 37-year-old -Hungarian gentleman, current smoker and marijuana user, past medical history significant for uwm-hrwnjfu-lnxrwxqrw diabetes mellitus, asthma, history of cellulitis about a year ago came to the ED for evaluation of fever and chills. Prior to yesterday he was at his baseline, when he got up yesterday felt feverish with chills. He took tamiflu with no improvemnt. Since the past two days he has noticed leg pain- left side more than right. He has been noncompliant with his metformin in the recent days. When asked why he doesn't take his metformin, he has been trying to improve his diet and did not feel like taking it. Daughter at home has cold- like symptoms. Denies cough, chest pain, rash, shortness of breath, recent travel, tick bites. Vitals MAXIMUM TEMPERATURE 102.8, heart rate 109, blood pressure 112/70, 96% on room air. Examination pertinent for left lower extremity swelling and redness. Dorsalis pedis pulses bilaterally equal. CVS S1-S2 no murmurs heard, RS, bilaterally decreased breath sounds heard in all areas. Labs significant for white count 23.6 with left shift and bandemia 3, sodium 133 , potassium 3.8, chloride 96, bicarbonate 28, BUS 11, creatinine 1.0, glucose 213, AST 13 ALT 31, normal lactic acid UA significant for trace ketones trace leukocyte esterase Chest x-ray no acute abnormality CT abdomen and pelvis:No CT evidence for any prostatitis or seminal vesiculitis. No abscess. Bladder decompressed. No gross abnormality. Mildly abnormal lymph nodes within the pelvis which is nonspecific. This may be related to infection but pathologic lymph nodes second due to carcinoma or lymphoma not excluded. Short interval follow-up recommended Assessment: Sepsis secondary to ?cellulitis. Wells criteria = 0, less likely to be DVT Problem list: left leg cellulitis NIDDM Asthma Plan: -admit to gen med as Obs, vitals per protocol -start IV cefazolin -f/up US LLE for dvt and soft tissue assessment -holding metformin -accuchecks and ISS -TRC/Nebs -DVT ppx sc lovenox -diabetic diet full code Anisa Ralph 12/14/17 0335: Attending MD Review Statement Attending Statement Attending MD Statement: examined this patient, discuss w/resident/PA/EPIDEMIOLOGY INVESTIGATOR, agreed w/resident/PA/EPIDEMIOLOGY INVESTIGATOR, reviewed EMR data (avail), reviewed images, amended to note Attending Assessment/Plan: CC: Not feeling well PMH: DM, Asthma Patient came to ER for not feeling well in general. He could not pin point what was wrong. He felt fever and chills for one day, increased urinary frequency and urgency and leg pain. He states that he has not been taking his diabetes meds as he is supposed to. He feels that his sugar is high and so he is urinating more. He did not check blood sugar at home. He also noticed bilateral LE pain, left more that right, hurts with minimum movement, non-radiating. He denied, dysuria, blood in urine, penile discharge, cold, flu like symptoms, nausea, vomiting, diarrhea. He had mild non-productive cough, but no Chest pain, chest tightness, palpitations, SOB. He also complains of headache, but no neck pain, neck stiffness, vision changes or photophobia. Current smoker, occasional THC use and no allergies Vitals : T max 102.8, HR 109, RR 18, BP 112/70, saturating well on RA On exam: A O 3, cooperative, no acute distress, neck supple, JVD normal, no lymphadenopathy, mucosa moist, no focal neurological deficit, no dependent edema , CVS: S1-S2, RRR. RS: Clear to auscultate bilaterally. Abdomen: Soft, NT, ND, bowel sounds present. Left lower extremity red, warm, tender, swollen. (area marked), no obvious fluctuation but medial area appears more prominent. Pulses and ROM normal, but pain in calf with ankle movements CT abdo and pelvis with IV contrast No CT evidence for any prostatitis or seminal vesiculitis. No abscess. Bladder decompressed. No gross abnormality. Mildly abnormal lymph nodes within the pelvis which is nonspecific. This may be related to infection but pathologic lymph nodes second due to carcinoma or lymphoma not excluded. Short interval follow-up recommended. CXR Unremarkable examination. A and P 37 Y O M with PMH DM and asthma, non compliant with medications, presented in ER for fever and chills. He could not pin point exact illness but with probing questions, he endorses left leg pain. On exam, it appears cellulitis. no obvious fluctuation but medial area appears more prominent. He had significant fever and leukocytosis and will benefit for observation in General medicine for any worsening and IV abx. UA shows mild leucocyte esterase, the fever is less likely secondary to UTI. Imaging unremarkable. + left leg cellulitis + Sepsis + Hx DM and asthma - place in observation in Gen Med - IV cefazolin - adequate pain control - Soft tissue ultrasound and DVT Doppler for Left LE - DVT prophylaxis - Sliding scale insulin - PRN nebs and TRC
[2017-12-14 03:37] VITALS: BP 124/72
[2017-12-14 08:41] LABS: ABSOLUTE BASOPHIL COUNT 0 /CUMM (0.0-0.2); ABSOLUTE EOSINOPHIL COUNT 0.1 /CUMM (0.0-0.7); ABSOLUTE GRANULOCYTE CT 15.4 /CUMM (1.4-6.5); ABSOLUTE LYMPH COUNT 1.1 /CUMM (1.2-3.4); ABSOLUTE MONOCYTE COUNT 0.9 /CUMM (0.10-0.60); BASOPHIL % 0.1 % (0.0-2.0); EOSINOPHIL % 0.4 % (0-5); HEMATOCRIT 44.8 % (42-52); MEAN CORPUSCULAR HGB 30.2 PG (27.0-31.0); MEAN CORPUSCULAR HGB CONC 33.8 G/DL (33.0-37.0); MEAN CORPUSCULAR VOLUME 89.4 FL (80.0-94.0); MEAN PLATELET VOLUME 9.1 FL (7.4-10.4); PLATELET COUNT 253 /CUMM (130-400); RBC DISTRIBUTION WIDTH 12.4 % (11.5-14.5); RED BLOOD CELL CT 5.01 /CUMM (4.70-6.10); WHITE BLOOD CELL COUNT 17.6 /CUMM (4.8-10.8)
[2017-12-14 10:08] LABS: GRANULOCYTE % 87.7 % (42.2-75.2)
--- NOTE | 2017-12-14 13:12 | ULTRASOUND REPORT ---
EXAMINATION: US TRIPLEX LOWER EXTREMITY, LEFT CLINICAL INFORMATION: Left lower extremity swelling. COMPARISON: Left lower extremity ultrasound 10/16/2016 TECHNIQUE: Color-flow triplex imaging with spectral analysis and compression Doppler were performed on the lower extremity. FINDINGS: Respiratory variation, normal compression and augmented flow are noted throughout the lower extremity. The visualized common femoral vein, superficial femoral vein, profunda femoral vein, popliteal vein and midcalf peroneal and posterior tibial venous segments show no evidence of deep venous thrombosis. There is no Curiel's cyst. Diffuse subcutaneous edema is noted in the left lower leg. No definite focal fluid collection to suggest abscess. Enlarged nonspecific lymph nodes are again noted within the left groin, the largest measuring 3.3 x 2.3 x 1.4 cm. IMPRESSION: 1. No evidence of deep venous thrombosis involving the lower extremity. 2. Diffuse subcutaneous edema in the left lower leg. No definite focal fluid collection to suggest abscess. 3. Enlarged, nonspecific left groin lymph nodes.
[2017-12-14 14:16] VITALS: BP 118/74
--- NOTE | 2017-12-14 16:30 | PN- Att Addend ---
Attending Addendum Attending Brief Note 37M PMH NIDDM, HTN admitted with sepsis secondary to left leg cellulitis. Patient complains of pain to light touch of his left leg, and the leg is swollen , warm, and erythematous. Tmax 102.8, WBC 23.9. HbA1c is 12. No other complaints 1. Sepsis secondary to LLE cellulitis 2. Uncontrolled Type 2 diabetes Plan - Continue as observation in general medicine - Continue Cefazolin - Follow cultures - Follow endocrine recommendations - Continue basal insulin while inpatient - DVT PPx - Anticipated discharge tomorrow on Cephalexin
--- NOTE | 2017-12-14 18:52 | Cons- Endocrinology ---
General Information and HPI Consulting Request Date of Consult: 12/14/17 Requested By: medical team Reason for Consult: management of uncontrolled diabetes type 2 Source of Information: patient Exam Limitations: no limitations History of Present Illness: Patient is a 37-year-old -[place] male with a past medical history significant for asthma and diabetes type 2 which was diagnosed several years ago and was suposed to take metformin 500 mg twice a day. He stated that he modified the diet and stopped metformin on his own a while ago. He presented to the [facility] ED complaining of fevers, polyuria, malaise and left LE redness and swelling. Blood work showed HbA1c 12.2%. He was put on Levemir 5 units twice a day and Novolog coverage before meals. His FSGs were 193 and 210. Patient received IV contrast for the CT done on 12/13/2017. Allergies/Medications Allergies: Coded Allergies: NO KNOWN ALLERGIES (10/15/16) Home Med List: Albuterol Sulfate (Ventolin Hfa) 18 GM HFA.AER.AD 2 PUF INH Q4-6 PRN PRN WHEEZING/SHORTNESS OF BREATH Ibuprofen 600 MG TABLET 1 TAB PO TID HEADACHE Metformin HCl 1,000 MG TABLET 1 TAB PO BID diabetes Metformin HCl 500 MG TABLET 1 TAB PO BID dm Tramadol HCl 50 MG TABLET 1 TAB PO TID PRN PAIN Review of Systems Review of Systems Constitutional: Reports: see HPI, fever, malaise. Cardiovascular: Denies: chest pain. Respiratory: Denies: short of breath. GI: Denies: abdominal pain. Musculoskeletal: Reports: see HPI (left LE redness and swelling). Hematologic/Endocrine: Reports: polyuria, polydipsia. 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 Home Who Do You Live With? child, girlfriend Services at Home: None Primary Language: [place] Smoking Status: Light Tobacco Smoker (3 cigarrettes/day for 15 yrs) ETOH Use: denies use Illicit Drug Use: marijuana Functional Ability ADLs Independent: dressing, eating, toileting, bathing. Ambulation: independent IADLs Independent: shopping, housework, finances, food prep, telephone, transportation , medication admin. Exam & Diagnostic Data Last 24 Hrs of Vital Signs/I&O Vital Signs Date Time Temp Pulse Resp B/P B/P Pulse O2 O2 Flow FiO2 Mean Ox Delivery Rate 12/14 1416 99.2 95 20 118/74 99 Room Air 12/14 1405 Room Air 12/14 0730 18 95 Room Air 12/14 0337 97.7 81 18 124/72 97 Room Air 12/14 0235 98.7 86 18 127/82 95 Room Air 12/14 0134 96.4 80 18 129/62 95 Room Air 12/13 2228 98.7 12/13 2224 98.7 68 108/57 95 Room Air 12/13 2049 100.4 12/13 1948 98 12/13 1914 100.4 Intake & Output 12/14 1600 12/14 0800 12/14 0000 Intake Total 240 480 Output Total 400 500 Balance -160 480 -500 Intake, Oral 240 480 Output, Urine 400 500 Patient 290 lb 290 lb Weight Weight Standing Scale Measurement Method Physical Exam General Appearance: no apparent distress Neck: Acanthosis Nigricans Respiratory: lungs clear Cardiovascular: regular rate/rhythm Gastrointestinal: soft Extremities: swelling (left LE) Labs/Jose Results: Laboratory Tests 12/14 12/14 0630 0600 Chemistry Calcium Cancelled Hematology CBC w Diff NO MAN DIFF REQ WBC (4.8 - 10.8 /CUMM) 17.6 H RBC (4.70 - 6.10 /CUMM) 5.01 Hgb (14.0 - 18.0 G/DL) 15.1 Hct (42 - 52 %) 44.8 MCV (80.0 - 94.0 FL) 89.4 MCH (27.0 - 31.0 PG) 30.2 MCHC (33.0 - 37.0 G/DL) 33.8 RDW (11.5 - 14.5 %) 12.4 Plt Count (130 - 400 /CUMM) 253 MPV (7.4 - 10.4 FL) 9.1 Gran % (42.2 - 75.2 %) 87.7 H Lymphocytes % (20.5 - 51.1 %) 6.5 L Monocytes % (1.7 - 9.3 %) 5.3 Eosinophils % (0 - 5 %) 0.4 Basophils % (0.0 - 2.0 %) 0.1 Absolute Granulocytes (1.4 - 6.5 /CUMM) 15.4 H Absolute Lymphocytes (1.2 - 3.4 /CUMM) 1.1 L Absolute Monocytes (0.10 - 0.60 /CUMM) 0.9 H Absolute Eosinophils (0.0 - 0.7 /CUMM) 0.1 Absolute Basophils (0.0 - 0.2 /CUMM) 0 12/13 190 Chemistry Sodium (137 - 145 mmol/L) 133 L Potassium (3.5 - 5.1 mmol/L) 3.8 Chloride (98 - 107 mmol/L) 96 L Carbon Dioxide (22 - 30 mmol/L) 25 Anion Gap (5 - 16) 12 BUN (9 - 20 mg/dL) 11 Creatinine (0.7 - 1.2 mg/dL) 1.0 Estimated GFR (>60 ml/min) > 60 BUN/Creatinine Ratio (7 - 25 %) 11.0 Glucose (65 - 99 mg/dL) 213 H Hemoglobin A1c (4.2 - 5.8 %) 12.2 H Lactic Acid (0.7 - 2.1 mmol/L) 0.9 Calcium (8.4 - 10.2 mg/dL) 9.0 Total Bilirubin (0.2 - 1.3 mg/dL) 0.8 AST (17 - 59 U/L) 13 L ALT (21 - 72 U/L) 31 Alkaline Phosphatase (< 127 U/L) 69 Total Protein (6.3 - 8.2 g/dL) 6.9 Albumin (3.5 - 5.0 g/dL) 3.7 Globulin (1.9 - 4.2 gm/dL) 3.2 Albumin/Globulin Ratio (1.1 - 2.2 %) 1.2 Hematology CBC w Diff MAN DIFF ORDERED WBC (4.8 - 10.8 /CUMM) 23.6 H RBC (4.70 - 6.10 /CUMM) 5.11 Hgb (14.0 - 18.0 G/DL) 15.3 Hct (42 - 52 %) 45.1 MCV (80.0 - 94.0 FL) 88.3 MCH (27.0 - 31.0 PG) 29.9 MCHC (33.0 - 37.0 G/DL) 33.8 RDW (11.5 - 14.5 %) 12.1 Plt Count (130 - 400 /CUMM) 271 MPV (7.4 - 10.4 FL) 8.8 Gran % (42.2 - 75.2 %) 90.8 H Lymphocytes % (20.5 - 51.1 %) 5.6 L Monocytes % (1.7 - 9.3 %) 3.5 Eosinophils % (0 - 5 %) 0 Basophils % (0.0 - 2.0 %) 0.1 Absolute Granulocytes (1.4 - 6.5 /CUMM) 21.4 H Segmented Neutrophils (42.2 - 75.2 %) 84 H Band Neutrophils (0.0 - 5.0 %) 3 Absolute Lymphocytes (1.2 - 3.4 /CUMM) 1.3 Lymphocytes (20.5 - 51.1 %) 9 L Monocytes (1.7 - 9.3 %) 4 Absolute Monocytes (0.10 - 0.60 /CUMM) 0.8 H Absolute Eosinophils (0.0 - 0.7 /CUMM) 0 Absolute Basophils (0.0 - 0.2 /CUMM) 0 Platelet Estimate (ADEQUATE) ADEQUATE Normocytic RBCs VERIFIED Stomatocytes FEW Urines Urinalysis LIGHT H Urine Color (YEL,AMB,STR) YEL Urine Clarity (CLEAR) CLEAR Urine pH (5.0 - 8.0) 6.0 Ur Specific [place] (1.001 - 1.035) >= 1.030 Urine Protein (NEG,<30 MG/DL) 100 H Urine Ketones (NEG) TRACE H Urine Nitrite (NEG) NEG Urine Bilirubin (NEG) NEG Urine Urobilinogen (0.1 - 1.0 EU/dl) 1.0 Ur Leukocyte Esterase (NEG) TRACE H Ur Microscopic SEDIMENT EXAMINED Urine RBC (0 - 5 /HPF) 1-3 Urine WBC (0 - 2 /HPF) 15-25 H Ur Epithelial Cells (NONE,FEW) RARE Urine Mucus (FEW,NONE) FEW Urine Hemoglobin (NEG) TRACE-INTACT H Urine Glucose (N MG/DL) 100 H Assessment/Plan Assessment/Plan Patient is a 37-year-old -[place] male with a past medical history significant for asthma and diabetes type 2 which was diagnosed several years ago and was suposed to take metformin 500 mg twice a day. He stated that he modified the diet and stopped metformin on his own a while ago. He presented to the [facility] ED complaining of fevers, polyuria, malaise and left LE redness and swelling. Blood work showed HbA1c 12.2%. His DM has been poorly controlled. He received IV contrast on 12/13/[address] scan. Plan: 1. DM nutrition consult/ DM education/ glucometer teaching; 2. increase Levemir to 8 units twice a day; 3. adjust Novolog coverage before meals and add Novolog coverage at bedtime; Detail see the inpatient DM orders. 4. monitor FSGs. will follow Inpatient Diabetes Orders Before Each Meal: Bolus Insulin: Novolog < 80 mg/dl: no coverage 80-100 mg/dl: 3 units 101-120 mg/dl: 3 units 121-150 mg/dl: 3 units 151-200 mg/dl: 4 units 201-250 mg/dl: 5 units 251-300 mg/dl: 6 units 301-350 mg/dl: 7 units 351-400 mg/dl: 8 units > 400 mg/dl: 10 units Bedtime: Bolus Insulin: Novolog < 80 mg/dl: no coverage 80-100 mg/dl: no coverage 101-120 mg/dl: no coverage 121-150 mg/dl: no coverage 151-200 mg/dl: no coverage 201-250 mg/dl: no coverage 251-300 mg/dl: 2 units 301-350 mg/dl: 3 units 351-400 mg/dl: 4 units > 400 mg/dl: 5 units Consult Acknowledgment - Thank you for your consult request.
[2017-12-14 22:12] VITALS: BP 132/70
--- NOTE | 2017-12-15 07:06 | PN- Housestaff ---
Joon Bose 12/15/17 0706: Subjective Follow-up For: Left lower extremity cellulitis Uncontrolled diabetes mellitus Incidental finding of abnormal groin lymph nodes Subjective: Patient reports LLE pain Review of Systems Constitutional: Reports: see HPI. Objective Last 24 Hrs of Vital Signs/I&O Vital Signs Date Time Temp Pulse Resp B/P B/P Pulse O2 O2 Flow FiO2 Mean Ox Delivery Rate 12/15 0719 98.7 91 18 136/70 96 12/14 2212 98.4 95 18 132/70 97 Room Air 12/14 1416 99.2 95 20 118/74 99 Room Air 12/14 1405 Room Air Intake & Output 12/15 0800 12/15 0000 12/14 1600 Intake Total 510 480 Output Total 400 Balance 510 80 Intake, IV 30 Intake, Oral 480 480 Number 0 Bowel Movements Output, Urine 400 Physical Exam General Appearance: Alert, Oriented X3, Cooperative, No Acute Distress, obese Cardiovascular: Regular Rate, Normal S1, Normal S2, Gallops Lungs: Clear to Auscultation, Normal Air Movement Abdomen: Normal Bowel Sounds, Soft, No Tenderness Extremities: Mild LLE swelling and skin erythema Current Medications: Current Medications Sig/Eduin Start time Last Medication Dose Route Stop Time Status Admin Acetaminophen 500 MG Q6P PRN 12/14 1015 AC 12/14 PO 1710 Albuterol Sulfate 2 PUF Q4-6 PRN PRN 12/14 0230 AC INH Cefazolin Sodium 1,000 MG IQ8 12/14 0800 AC 12/15 IV 0005 Enoxaparin Sodium 40 MG DAILY 12/14 1000 AC 12/14 IA 0954 Insulin Aspart 0 TIDAC/HS 12/14 2100 AC 12/14 IA 2142 Insulin Aspart 0 TIDAC 12/14 0800 DC 12/14 SC 1806 Insulin Detemir 8 UNITS BID 12/14 2200 AC 12/14 SC 2143 Insulin Detemir 5 UNITS BID 12/14 1000 DC 12/14 SC 0952 Ketorolac 30 MG ONCE ONE 12/14 1400 DC 12/14 Tromethamine IV 12/14 1401 1416 Meloxicam 7.5 MG DAILY 12/14 1600 AC 12/14 PO 1906 Patient Medication 1 ED ONE ONE 12/14 1315 DC Teaching ED 12/14 1316 Tramadol HCl 50 MG TID PRN 12/14 0230 AC 12/14 PO 0805 Last 24 Hrs of Lab/Jose Results Last 24 Hrs of Labs/Mics: Laboratory Tests 12/15/17 0624: Sodium Pending, Potassium Pending, Chloride Pending, Carbon Dioxide Pending, Anion Gap Pending, BUN Pending, Creatinine Pending, BUN/Creatinine Ratio Pending Assessment/Plan Assessment: Mr. Varghese is a 37-year-old male with a past medical history significant for asthma, [id number] diabetes, with a history of left leg cellulitis last year, who presents to the [facility] ED complaining of fevers, polyuria, malaise. He has erythema, swelling, warmth his distal left lower extremity. He also has elevated blood sugars and polyuria in the setting of poor compliance with metformin. Problem list: Left lower extremity cellulitis Uncontrolled diabetes mellitus Incidental finding of abnormal groin lymph nodes Plan: Continue IV cefazolin LLE doppler r/o DVT DC today home Metformin 1000 BID upon discharge Endo recommendatins appreciated Diet: Diabetic diet DVT prophylaxis: Lovenox CODE STATUS: Full code Problem List: 1. Cellulitis of lower leg 2. Fever of unknown origin 3. Leukocytosis 4. Uncontrolled diabetes mellitus Pain Ratin Pain Location: LLE Pain Goal: Pain 7 or less Pain Plan: Meloxicam Tylenol Tomorrow's Labs & Rationales: none Omar Parker MD 12/15/17 1048: Attending MD Review Statement Attending Statement Attending MD Statement: examined this patient, discuss w/resident/PA/EDI ANALYST, agreed w/resident/PA/EDI ANALYST, reviewed EMR data (avail) Attending Assessment/Plan: 37M PMH NIDDM, HTN admitted with sepsis secondary to left leg cellulitis. Afebrile overnight, stable vitals, leg appears much less erythematous and swollen. Patient feels well and wishes to go home. He was counseled by endocrine and nutrition prior to being discharged. 1. Sepsis secondary to LLE cellulitis 2. Uncontrolled Type 2 diabetes Plan - Discharge home - Cephalexin for cellulitis - Outpatient follow up with endocrine and podiatry - Metformin 1g BID on discharge
[2017-12-15 07:19] VITALS: BP 136/70
--- NOTE | 2017-12-15 08:39 | Patient Discharge Instructions ---
Discharge Instructions General Discharge Information You were seen/treated for: Left leg cellulitis Uncontrolled Diabetes You had these procedures: none Special Instructions: Follow up with the Clam Picker for your diabetes within 1 week of discharge Follow up with the Elevator Repairer upon discharge Diet Recommended Diet: Diabetic Activity Other activity limits: As tolerated Acute Coronary Syndrome Inclusion Criteria At DC or during hospital stay patient has or had the following: ACS DIAGNOSIS No Discharge Core Measures Meds if any: Prescribed or Continued at Discharge Meds if any: NOT Prescribed or Continued at Discharge Congestive Heart Failure Inclusion Criteria At DC or during hospital stay patient has or had the following: CHF DIAGNOSIS No Discharge Core Measures Meds if any: Prescribed or Continued at Discharge Meds if any: NOT Prescribed or Continued at Discharge Cerebrovascular accident Inclusion Criteria At DC or during hospital stay patient has or had the following: CVA/TIA Diagnosis No Discharge Core Measures Meds if any: Prescribed or Continued at Discharge Meds if any: NOT Prescribed or Continued at Discharge Venous thromboembolism Inclusion Criteria VTE Diagnosis No VTE Type NONE VTE Confirmed by (Test) NONE Discharge Core Measures - Per Current guidelines, there needs to be overlap - treatment for the first 5 days of Warfarin therapy. - If discharged on Warfarin prior to 5 days of - overlap therapy, the patient will need to be - assessed for post discharge needs including - *Post discharge parental anticoagulation - *Warfarin and/or parental anticoagulation education - *Follow up date to check INR post discharge At least 5 days overlap therapy as Inpatient No Meds if any: Prescribed or Continued at Discharge Note: Overlap Therapy is Warfarin and Anticoagulant Meds if any: NOT Prescribed or Continued at Discharge
[2017-12-15] MEDS ORDERED: KEFLEX750 M1 PO (10:00)
--- NOTE | 2017-12-15 13:38 | PN- Diabetes ---
Assessment/Plan Diabetes Assessment: Patient is a 37-year-old -[place] male with a past medical history significant for asthma and diabetes type 2 which was diagnosed several years ago and was suposed to take metformin 500 mg twice a day. He stated that he modified the diet and stopped metformin on his own a while ago. He presented to the [facility] ED complaining of fevers, polyuria, malaise and left LE redness and swelling. Blood work showed HbA1c 12.2%. His DM has been poorly controlled. He received IV contrast on 12/13/[address] scan. He was put on Levemir 8 units twice a day, Novolog coverage before meals and Novolog coverage at bedtime. His FSGs were 210, 285 and 312. Patient is going home today as per team. Plan: Discharge plan for DM: 1. no insulin at this point; 2. start metformin 1000 mg twice a day with breakfast and with dinner; 3. diet control; 4. exercises; 5. monitor FSGs at home; 6. f/u in office and will consider adding GLP-1 analog once a week as it is indicated to help better control both diabetes and his weight. Subjective Subjective: He feels better; but his glucose levels are not controlled. Objective Last 24 Hrs of Vital Signs/I&O Vital Signs Date Time Temp Pulse Resp B/P B/P Pulse O2 O2 Flow FiO2 Mean Ox Delivery Rate 12/15 0719 98.7 91 18 136/70 96 12/14 2212 98.4 95 18 132/70 97 Room Air 12/14 1416 99.2 95 20 118/74 99 Room Air 12/14 1405 Room Air Intake & Output 12/15 1600 12/15 0800 12/15 0000 Intake Total 750 Output Total 300 Balance 450 Intake, IV 30 Intake, Oral 720 Number 0 Bowel Movements Output, Urine 300 Findings Pertinent Lab/Jose Results: Laboratory Tests 12/15 0624 Chemistry Sodium (137 - 145 mmol/L) 137 Potassium (3.5 - 5.1 mmol/L) 4.0 Chloride (98 - 107 mmol/L) 99 Carbon Dioxide (22 - 30 mmol/L) 27 Anion Gap (5 - 16) 11 BUN (9 - 20 mg/dL) 10 Creatinine (0.7 - 1.2 mg/dL) 0.9 Estimated GFR (>60 ml/min) > 60 BUN/Creatinine Ratio (7 - 25 %) 11.1
[2017-12-15] MEDS ORDERED: VENTOLIN HFA18 GM INH (18:57)
[2017-12-15] MEDS ORDERED: METFORMIN HCL1000 M1 PO (18:57)
[2017-12-15] MEDS ORDERED: IBUPROFEN600 M1 PO (18:57)
== END 2017-12-15 11:00 ==
LOC: ERH 18:06 → 2NB 12-14 01:57 → ERHI 12-14 01:57 → ENRESERV 12-14 03:05 → 2NB 12-14 03:35 → ENPENDDIS 12-15 09:59 → 2NB 12-15 11:00
PROVIDERS: Internal Medicine; Physician Assistant Medical
DX: A41.9 Sepsis, unspecified organism (principal); L03.116 Cellulitis of left lower limb; J45.909 Unspecified asthma, uncomplicated; E11.65 Type 2 diabetes mellitus with hyperglycemia; Z79.84 Long term (current) use of oral hypoglycemic drugs; R35.8 Other polyuria; I10 Essential (primary) hypertension; R53.81 Other malaise; D72.829 Elevated white blood cell count, unspecified; R59.0 Localized enlarged lymph nodes; F17.200 Nicotine dependence, unspecified, uncomplicated
CPT/HCPCS: 1263; 36415; 71046; 74177; 81001; 82436; 87040; 87086; 87491; 87591; 87804; 87804-59; 96361; 96372; 96374; 96375; 96376; G0378; J0690; J0696; J1650; J1885; J3490